=== PATIENT | male | born 1950 | race Caucasian/White ===

== ENCOUNTER 2021-05-02 15:31 | Emergency (ER) | payer OTHER ==
[~2021-05-02] VITALS: Ht 175.3 cm; Wt 81.7 kg
[2021-05-02] MEDS ORDERED: CELEXA10 MG PO (17:51)
[2021-05-02] MEDS ORDERED: LIPITOR10 MG PO (17:52)
[2021-05-02] MEDS ORDERED: CALCIUM CITRAT1 EAC7 PO (17:53)
== END 2021-05-02 17:45 | disposition home or self-care (01) ==
LOC: ED 15:31
DX: S01.511A Laceration without foreign body of lip, initial encounter (principal); Z23 Encounter for immunization; W22.8XXA Striking against or struck by other objects, initial encounter; E78.00 Pure hypercholesterolemia, unspecified; Z87.891 Personal history of nicotine dependence; Z91.030 Bee allergy status
CPT/HCPCS: 12001; 90471; 90714; 99282-25